=== PATIENT | female | born 1995 | race Two or more races ===

== ENCOUNTER 2018-10-11 19:57 | Emergency (ER) | payer BC, OTHER ==
[~2018-10-11] VITALS: Ht 167.6 cm; Wt 90.7 kg
[2018-10-11 23:01] LABS: Urine Pregnacy Test Negative (Negative)
[2018-10-11 23:11] LABS: Alcohol, Urine < 3.0 mg/dL (0-5); Amphetamine Screen, Urine NEGATIVE (NEGATIVE); Barbiturate Scree,Urine NEGATIVE (NEGATIVE); Benzodiazephine Screen, Urine NEGATIVE (NEGATIVE); Cannabinoid Screen, Urine NEGATIVE (NEGATIVE); Cocaine Screen, Urine NEGATIVE (NEGATIVE); Opiate Scree,Urine NEGATIVE (NEGATIVE); Phencyclidine Screen, Urine NEGATIVE (NEGATIVE)
[2018-10-12 00:29] VITALS: BP 119/80
== END 2018-10-12 01:35 | disposition home or self-care (01) ==
LOC: ER 20:02 → EDBD 20:02 → ER 10-12 01:35
DX: S16.1XXA Strain of muscle, fascia and tendon at neck level, initial encounter (principal); S09.90XA Unspecified injury of head, initial encounter; W19.XXXA Unspecified fall, initial encounter; Y93.89 Activity, other specified; Y99.8 Other external cause status; Y92.89 Other specified places as the place of occurrence of the external cause
CPT/HCPCS: 70450; 72125; 80307; 81025